=== PATIENT | male | born 1965 | race Caucasian/White ===

== ENCOUNTER 2019-06-16 05:34 | Inpatient (IN) | payer OTHER ==
[~2019-06-16] VITALS: Ht 180.3 cm; Wt 100.0 kg
[2019-06-17 07:01] VITALS: BP 107/68
== END 2019-06-17 10:59 | disposition home or self-care (01) | DRG 517 ==
LOC: OUT 05:34 → 4NOR 10:36 → OUT 10:37 → 4NOR 10:37 → DCLOUNGE 06-17 10:45
PROVIDERS: ADMIT Neurological Surgery; ATTEND Neurological Surgery
PROC: 01N10ZZ Release Cervical Nerve, Open Approach (ICD-10-PCS; principal; 2019-06-16)
DX: M48.02 Spinal stenosis, cervical region (principal); M54.12 Radiculopathy, cervical region; G89.29 Other chronic pain; Z86.711 Personal history of pulmonary embolism; Z86.718 Personal history of other venous thrombosis and embolism; Z79.01 Long term (current) use of anticoagulants
CPT/HCPCS: 72040; J3490; C1713; G0378; J0690; J1100; J1170; J2250; J2270; J2704; J3010; J3480; Q0162; J0330; J2370; J7120